=== PATIENT | female | born 1995 | race Caucasian/White ===

== ENCOUNTER 2019-07-19 19:58 | Emergency (ER) | payer OTHER ==
[~2019-07-19] VITALS: Ht 165.1 cm; Wt 86.4 kg
--- NOTE | 2019-07-19 20:18 | PHYS DOC ---
Past History Past Medical History: Sciatica Adult General Chief Complaint Chief Complaint: BACK PAIN - NO INJURY.. " I got bad neck spasms.. and it make my Rt. arm tingle and hurt... 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 " HPI HPI Patient is a 24 year old female who presents with above history and complaints of right trapezius muscle spasms causing tingling down her right arm. Patient is right-hand dominant. Has had previous physical therapy for low back injury at work. No specific traumatic injury. Pain is localized in trapezius on right. rt. no history immunosuppression. Does do frequent travel for the [employer] as a stewardess. Does do lifting constantly in her job. DTRs +2 at brachial. And patella. Does have obvious spasm of the trapezius on the right. Distal neurovascular is intact and equal to left hand. No history of previous neck trauma. Review of Systems Review of Systems Constitutional: Denies fever or chills [] Eyes: Denies change in visual acuity, redness, or eye pain [] HENT: Denies nasal congestion or sore throat [] Respiratory: Denies cough or shortness of breath [] Cardiovascular: No additional information not addressed in HPI [] GI: Denies abdominal pain, nausea, vomiting, bloody stools or diarrhea [] : Denies dysuria or hematuria [] Musculoskeletal: Denies back pain or joint pain . Patient has []complaints of right trapezius muscle spasm and pain Integument: Denies rash or skin lesions [] Neurologic: Denies headache, focal weakness or sensory changes [] Endocrine: Denies polyuria or polydipsia [] All other systems were reviewed and found to be within normal limits, except as documented in this note. Family History Family History Noncontributory Current Medications Current Medications See nursing for home meds Allergies Allergies Allergic to naproxen =blisters Physical Exam Physical Exam Constitutional: Well developed, well nourished, no acute distress, non-toxic appearance. [] HENT: Normocephalic, atraumatic, bilateral external ears normal, oropharynx moist, no oral exudates, nose normal. [] Eyes: PERRLA, EOMI, conjunctiva normal, no discharge. [] Glasses Neck: Normal range of motion, no tenderness, supple, no stridor. [] Tenderness and muscle spasm and right trapezius no midline tenderness Cardiovascular:Heart rate regular rhythm, no murmur [] Lungs & Thorax: Bilateral breath sounds equal at apex on auscultation [] Abdomen: Bowel sounds normal, soft, no tenderness, no masses, no pulsatile masses. [] Skin: Warm, dry, no erythema, no rash. [] Back: No tenderness, no CVA tenderness. Except findings in right trapezius as per history of present illness Extremities: No tenderness, no cyanosis, no clubbing, ROM intact, no edema. [] Neurologic: Alert and oriented X 3, normal motor function, normal sensory function, no focal deficits noted. []DTRs +2 at brachial and patella. Psychologic: Affect normal, judgement normal, mood normal. [] EKG EKG [] Radiology/Procedures Radiology/Procedures [] Course & Med Decision Making Course & Med Decision Making Pertinent Labs and Imaging studies reviewed. (See chart for details) Patient use ice packs for the next 3 days. Gentle massage. May advance to moist heat after 3 days if no reinjury. Take Tylenol for pain. For marked pain may take Percocet up to 4 times a day with Flexeril 3 times a day. Follow-up primary care. If persistent discomfort and no improvement may need CT or MRI rule out impingement syndrome. Use a towel roll instead of pillow at night for neck support Impression- 1. Right cervical neuropathy 2. Right trapezius muscle spasm [] Dragon Disclaimer Dragon Disclaimer This electronic medical record was generated, in whole or in part, using a voice recognition dictation system. Departure Departure: Disposition: 01 HOME/RESIDENCE PRIOR TO ADM Condition: STABLE Referrals: PCP,UNKNOWN (PCP) Scripts Oxycodone HCl/Acetaminophen (Percocet 5-325 mg Tablet) 1 Each Tablet 1 TAB PO PRN QID PRN for PAIN MDD 4 Tablet(s) for 5 Days, #30 TAB 0 Refills Prov: KLARISSA WATKINS MD 07/19/19 Cyclobenzaprine Hcl (CYCLOBENZAPRINE HCL) 10 Mg Tablet 10 MG PO tidprn for spasms, #30 TAB Prov: KLARISSA WATKINS MD 07/19/19 Dragon Disclaimer This chart was dictated in whole or in part using Voice Recognition software in a busy, high-work load, and often noisy Emergency Department environment. It may contain unintended and wholly unrecognized errors or omissions. Dragon Disclaimer This chart was dictated in whole or in part using Voice Recognition software in a busy, high-work load, and often noisy Emergency Department environment. It may contain unintended and wholly unrecognized errors or omissions. KLARISSA WATKINS MD Jul 19, 2019 20:18
[2019-07-19] MEDS ORDERED: OXYC-325 PO (21:47)
[2019-07-19] MEDS ORDERED: CYCL-331 PO (21:47)
[2019-07-19 22:10] VITALS: BP 158/80
[2019-07-19 22:18] LABS: BACTERIA,URINE 0 /HPF (0-FEW); BILIRUBIN,URINE NEG (NEG); CLARITY,URINE HAZY; COLOR,URINE YELLOW; GLUCOSE,URINE NEG (NEG); NITRITE,URINE NEG (NEG); RBC,URINE OCC /HPF (0-2); SQUAMOUS EPITHELIAL CELL,UR OCC /LPF; UROBILINOGEN,URINE 0.2 mg/dL (0.2 mg/dL); WBC,URINE OCC /HPF (0-4)
[2019-07-19] MEDS ORDERED: ONDANSETRON ODT 4 MG TAB.RAPDIS ONE (22:26)
[2019-07-19] MEDS ORDERED: oxyCODONE/APAP 5/325 1 TAB TABLET PO ONE (22:30)
[2019-07-19] MEDS ORDERED: CYCLOBENZAPRINE 10 MG TABLET. PO ONE (22:30)
[2019-07-19] MEDS ORDERED: ONDANSETRON ODT 4 MG TAB.RAPDIS PO ONE (22:30)
== END 2019-07-19 21:55 | disposition home or self-care (01) ==
LOC: ER 19:58
DX: G54.2 Cervical root disorders, not elsewhere classified (principal); M62.838 Other muscle spasm
CPT/HCPCS: 81001; 81025; 99284; Q0162